=== PATIENT | female | born 1935 | race Caucasian/White ===

== ENCOUNTER → 2018-01-21 11:09 | Outpatient (CLI) | payer MEDICARE, OTHER, SELFPAY ==
[2018-01-21 12:28] LABS: Absolute Lymphocyte Count 1.39 X10^3/ul (0.83-4.51); Absolute Neutrophil Count 4.1 X10^3/uL (2.0-7.7); Basophil# 0.04 X10^3/uL; Basophil% 0.6 % (0-1); Eosinophil# 0.08 X10^3/uL; Eosinophils% 1.3 % (0-5); Hematocrit 37.8 % (37-47); Hemoglobin 12.2 g/dl (12.0-15.0); Lymphocyte # 1.39 X10^3/ul (4.0); Lymphocyte % 22.5 % (19-41); Mean Corp Hgb Conc 32.3 g/gl (32-36); Mean Corpuscular Hgb 29.7 pg (27.0-32.0); Mean Platelet Vol. 10.3 fl (6.2-12.0); Monocyte# 0.57 X10^3/uL; Monocyte% 9.2 % (0-10); Neutrophil # 4.08 X10^3/uL (2.7-7.7); Neutrophil % 66.1 % (47-70); Platelet Count 292 K/mm3 (150-450); RBC Distribution Width CV 13.6 % (11.6-14.6); RBC Distribution Width SD 45.1 fl (35.1-43.9); Red Blood Count 4.11 M/mm3 (4.2-5.4); White Blood Count 6.2 K/mm3 (4.4-11.0)
[2018-01-21 12:31] LABS: POSITIVE COUNT NO; POSITIVE DIFFERENTIAL NO; POSITIVE MORPHOLOGY NO
[2018-01-21 12:55] LABS: ALB/GLOB Ratio 1.2 RATIO (0.9-2.4); AST(SGOT) 24 U/L (15-37); Alanine Aminotransfer ALT/SGPT 23 U/L (13-56); Alkaline Phosphatase 68 U/L (45-117); Anion Gap 6 (5-15); BUN 16 mg/dL (7-18); BUN/Creat Ratio 17.3 RATIO (10-20); Calcium,Total 9.2 mg/dL (8.5-10.1); Chloride 105 mmol/L (98-107); Creatinine, Serum 0.92 mg/dL (0.55-1.02); EST Glomerular Filtration Rate 62 mL/min (>60); Est Glom Filt Rate - Afr Amer 75 mL/min (>60); Globulin 3.2 g/dL (2.2-4.2); Glucose 78 mg/dL (74-106); Potassium 3.9 mmol/L (3.5-5.1); Protein, Total 7.2 g/dL (6.4-8.2); Sodium Level 139 mmol/L (136-145); Thyroid Stim Hormone (TSH) 1.31 uIU/mL (0.358-3.74)
[2018-01-21 12:59] LABS: Vitamin D,25 Hydroxy 25.5 ng/mL (29.95-100.01)
== END ==
PROVIDERS: Family Provider Family Medicine Geriatric Medicine; PCP Family Medicine Geriatric Medicine; Visit Provider Family Medicine Geriatric Medicine
DX: E55.9 Vitamin D deficiency, unspecified (principal); R53.83 Other fatigue
CPT/HCPCS: 36415; 80053; 82306; 84443; 85025

== ENCOUNTER → 2019-02-17 | Outpatient (CLI) | payer MEDICARE, OTHER, SELFPAY ==
[2019-02-17 11:55] LABS: Absolute Lymphocyte Count 1.68 X10^3/ul (0.83-4.51); Absolute Neutrophil Count 4.4 X10^3/uL (2.0-7.7); Basophil# 0.04 X10^3/uL; Basophil% 0.6 % (0-1); Eosinophil# 0.07 X10^3/uL; Hematocrit 39.5 % (37-47); Hemoglobin 12.7 g/dl (12.0-15.0); Lymphocyte # 1.68 X10^3/ul (4.0); Lymphocyte % 24.7 % (19-41); Mean Corp Hgb Conc 32.2 g/gl (32-36); Mean Corpuscular Hgb 29.5 pg (27.0-32.0); Mean Corpuscular Volume 91.6 fL (81-99); Mean Platelet Vol. 10.2 fl (6.2-12.0); Monocyte% 8.8 % (0-10); Neutrophil # 4.38 X10^3/uL (2.7-7.7); Neutrophil % 64.6 % (47-70); Platelet Count 311 K/mm3 (150-450); RBC Distribution Width SD 46.1 fl (35.1-43.9); Red Blood Count 4.31 M/mm3 (4.2-5.4); White Blood Count 6.8 K/mm3 (4.4-11.0)
[2019-02-17 12:04] LABS: POSITIVE COUNT NO; POSITIVE DIFFERENTIAL NO; POSITIVE MORPHOLOGY NO
[2019-02-17 12:16] LABS: ALB/GLOB Ratio 1.2 RATIO (0.9-2.4); AST(SGOT) 24 U/L (15-37); Alanine Aminotransfer ALT/SGPT 26 U/L (13-56); Albumin, Serum 3.8 g/dL (3.2-5.0); Alkaline Phosphatase 58 U/L (45-117); Anion Gap 7 (5-15); BUN 16 mg/dL (7-18); BUN/Creat Ratio 17.3 RATIO (10-20); Chloride 103 mmol/L (98-107); Creatinine, Serum 0.93 mg/dL (0.55-1.02); EST Glomerular Filtration Rate 61 mL/min (>60); Est Glom Filt Rate - Afr Amer 74 mL/min (>60); Globulin 3.3 g/dL (2.2-4.2); Glucose 84 mg/dL (74-106); Potassium 3.9 mmol/L (3.5-5.1); Protein, Total 7.1 g/dL (6.4-8.2); Sodium Level 140 mmol/L (136-145); Thyroid Stim Hormone (TSH) 1.47 uIU/mL (0.358-3.74)
== END | disposition home or self-care (01) ==
LOC: POLAB3 08:40
PROVIDERS: Family Provider Family Medicine Geriatric Medicine; PCP Family Medicine Geriatric Medicine; Visit Provider Family Medicine Geriatric Medicine
DX: R53.83 Other fatigue (principal)
CPT/HCPCS: 36415; 80053; 84443; 85025

== ENCOUNTER → 2019-02-23 | Outpatient (CLI) | payer MEDICARE, OTHER, SELFPAY ==
--- NOTE | 2019-02-23 08:37 | RAD_ITS ---
STUDY: X-RAY - ESOPHAGUS (BARIUM SWALLOW) WITH FLUOROSCOPY REASON FOR EXAM: Female, 84 years old. Dysphagia for solids and liquids. TECHNIQUE: 17 view(s) of the esophagus were obtained following swallowing of barium. FLUOROSCOPY TIME (if supplied): (0:53) minutes/seconds COMPARISON: None. FINDINGS: There is no demonstrated esophageal foreign body. There is no demonstrated stricture or mucosal abnormality. Normal gastroesophageal junction, without a demonstrated hiatal hernia. The patient ingested a 12 mm tablet of barium without any difficulty. There is atherosclerotic calcification of the aortic arch with tortuosity of the descending aorta. Normal visualized pulmonary parenchyma. There are diffuse degenerative changes of the visualized thoracic spine. RAD/Esophagus Only IMPRESSION: Normal plain film x-ray examination (barium swallow) of the esophagus. Electronically Signed: Mario Rabago, at 15:10 EDT , Service support ,
== END | disposition home or self-care (01) ==
LOC: RAD 08:27
PROVIDERS: Family Provider Family Medicine Geriatric Medicine; PCP Family Medicine Geriatric Medicine; Referring Provider Family Medicine Geriatric Medicine; Visit Provider Family Medicine Geriatric Medicine
DX: R13.10 Dysphagia, unspecified (principal)
CPT/HCPCS: 74220

== ENCOUNTER → 2020-02-21 | Outpatient (CLI) | payer MEDICARE, OTHER, SELFPAY ==
[2020-02-21 12:08] LABS: Absolute Lymphocyte Count 1.55 X10^3/uL (0.83-4.51); Absolute Neutrophil Count 4.3 X10^3/uL (2.0-7.7); Basophil# 0.06 X10^3/uL; Basophil% 0.9 % (0-1); Eosinophil# 0.07 X10^3/uL; Eosinophils% 1.1 % (0-5); Hematocrit 40.6 % (37-47); Hemoglobin 13.1 g/dL (12.0-15.0); Lymphocyte # 1.55 X10^3/ul (4.0); Lymphocyte % 23.6 % (19-41); Mean Corp Hgb Conc 32.3 g/dL (32-36); Mean Corpuscular Hgb 30.1 pg (27.0-32.0); Mean Corpuscular Volume 93.3 fL (81-99); Monocyte# 0.58 X10^3/uL; Monocyte% 8.8 % (0-10); NRBC Flagged by Analyzer 0 % (0-5); Neutrophil # 4.28 X10^3/uL (2.7-7.7); Neutrophil % 65.1 % (47-70); Platelet Count 327 K/mm3 (150-450); RBC Distribution Width CV 12.7 % (11.6-14.6); RBC Distribution Width SD 43.4 fl (35.1-43.9); Red Blood Count 4.35 M/mm3 (4.2-5.4); White Blood Count 6.6 K/mm3 (4.4-11.0)
[2020-02-21 12:13] LABS: Vitamin D,25 Hydroxy 22.2 ng/mL
[2020-02-21 12:28] LABS: ALB/GLOB Ratio 1.2 RATIO (0.9-2.4); AST(SGOT) 25 U/L (15-37); Alanine Aminotransfer ALT/SGPT 27 U/L (13-56); Alkaline Phosphatase 76 U/L (45-117); Anion Gap 8 (5-15); BUN 22 mg/dL (7-18); BUN/Creat Ratio 22.4 RATIO (10-20); Chloride 101 mmol/L (98-107); Creatinine, Serum 0.98 mg/dL (0.55-1.02); EST Glomerular Filtration Rate 57 mL/min (>60); Est Glom Filt Rate - Afr Amer 69 mL/min (>60); Globulin 3.4 g/dL (2.2-4.2); Glucose 94 mg/dL (74-106); Potassium 4.1 mmol/L (3.5-5.1); Protein, Total 7.4 g/dL (6.4-8.2); Sodium Level 136 mmol/L (136-145); Thyroid Stim Hormone (TSH) 1.11 uIU/mL (0.358-3.74)
== END | disposition home or self-care (01) ==
PROVIDERS: PCP Family Medicine Geriatric Medicine; Visit Provider Family Medicine Geriatric Medicine
DX: E55.9 Vitamin D deficiency, unspecified (principal); R53.83 Other fatigue
CPT/HCPCS: 36415; 80053; 82306; 84443; 85025

== ENCOUNTER 2020-10-13 08:14 | Outpatient (RCR) | payer MEDICARE, OTHER, SELFPAY | END 2020-10-13 23:59 | LOC: IMMUN 08:14 | PROVIDERS: PCP Family Medicine Geriatric Medicine; Visit Provider Family Medicine | DX: Z23 Encounter for immunization (principal) | CPT/HCPCS: 0011A; 0012A; 91301 ==

== ENCOUNTER → 2021-02-22 08:59 | Outpatient (CLI) | payer MEDICARE, OTHER, SELFPAY ==
[2021-02-22 10:51] LABS: Basophil# 0.07 X10^3/uL; Eosinophil# 0.12 X10^3/uL; Eosinophils% 1.7 % (0-5); Hemoglobin 12.2 g/dL (12.0-15.0); Lymphocyte % 18.6 % (19-41); Mean Corp Hgb Conc 31.3 g/dL (32-36); Mean Corpuscular Hgb 29.5 pg (27.0-32.0); Mean Corpuscular Volume 94.4 fL (81-99); Mean Platelet Vol. 9.9 fl (6.2-12.0); Monocyte# 0.52 X10^3/uL; Monocyte% 7.4 % (0-10); NRBC Flagged by Analyzer 0 % (0-5); Neutrophil # 4.96 X10^3/uL (2.7-7.7); Neutrophil % 70.9 % (47-70); Platelet Count 297 K/mm3 (150-450); RBC Distribution Width CV 13.2 % (11.6-14.6); RBC Distribution Width SD 46.2 fl (35.1-43.9); Red Blood Count 4.13 M/mm3 (4.2-5.4)
[2021-02-22 11:07] LABS: Vitamin D,25 Hydroxy 31.3 ng/mL
[2021-02-22 11:16] LABS: ALB/GLOB Ratio 1.2 RATIO (0.9-2.4); AST(SGOT) 19 U/L (15-37); Alanine Aminotransfer ALT/SGPT 23 U/L (13-56); Albumin, Serum 3.7 g/dL (3.2-5.0); Alkaline Phosphatase 94 U/L (45-117); Anion Gap 5 (5-15); BUN 13 mg/dL (7-18); BUN/Creat Ratio 14.4 RATIO (10-20); Calcium,Total 9.3 mg/dL (8.5-10.1); Chloride 103 mmol/L (98-107); EST Glomerular Filtration Rate 63 mL/min (>60); Est Glom Filt Rate - Afr Amer 76 mL/min (>60); Globulin 3.2 g/dL (2.2-4.2); Glucose 87 mg/dL (74-106); Potassium 4.2 mmol/L (3.5-5.1); Protein, Total 6.9 g/dL (6.4-8.2); Sodium Level 136 mmol/L (136-145); Thyroid Stim Hormone (TSH) 1.07 uIU/mL (0.358-3.74)
== END ==
PROVIDERS: PCP Family Medicine Geriatric Medicine; Visit Provider Family Medicine Geriatric Medicine
DX: E55.9 Vitamin D deficiency, unspecified (principal); R53.83 Other fatigue
CPT/HCPCS: 36415; 80053; 82306; 84443; 85025

== ENCOUNTER → 2021-02-27 | Outpatient (CLI) | payer MEDICARE, OTHER, SELFPAY ==
--- NOTE | 2021-02-27 09:40 | LES_PTH ---
PATIENT: TOI HESS LOC: [facility] U#:[id number] AGE/SX: 86/F ROOM: RE02/27/[address]: Dr. Landon Garcia MD : 1935 BED: DIS: 02/27/2021 SPEC #: [id number] RECD: 02/27/21 12:11 STATUS: CHARISSA RELucien #: [id number] SARITHA: 02/27/21 09:[address]: Landon Garcia Chi DEPT: SURGICAL PATHOLOGY RECD BY: Joahnna Ahuja Tissues: A - Skin of leg, NOS B - Skin of leg, NOS Procedures: Surgery Specimen Level IV HEADER OPERATION: Left leg PRE-OP DIAGNOSIS: Left leg TISSUE SUBMITTED: A - Left leg, B - Left leg MICROSCOPIC DIAGNOSIS A. Skin lesion of left leg, smaller shave biopsy: Invasive squamous cell carcinoma, keratoacanthomatous type. See comment. B. Skin lesion of left leg, larger shave biopsy: Invasive well differentiated squamous cell carcinoma, keratoacanthomatous type. See comment. AM:ryan 02/28/2021 COMMENT A. The lesion extends to the deep margin of excision. Clinical correlation is necessary. B. The lesion extends to the deep margin of excision. Clinical correlation is necessary. Case has been reviewed in consultation with Dr. Dietz who concurs with the above diagnosis. IDC:ASYA MICROSCOPIC DESCRIPTION Slides are reviewed. GROSS DESCRIPTION A - Received in fixative is one container labeled with the patient's name and designated left leg. The specimen consists of a discoid fragment of light brenner skin measuring 1.5 cm in diameter and 0.6 cm in thickness. The specimen is inked, serially sectioned and totally submitted in one cassette. B - Received in fixative is one container labeled with the patient's name and designated left leg. The specimen consists of a discoid fragment of light brenner skin measuring 9 cm in diameter and 0.2 cm in thickness. The specimen is inked, serially sectioned and totally submitted in one cassette. / AM:ryan 02/27/21 TC:0 CPT: 87740 x2
== END | disposition home or self-care (01) ==
LOC: LABSPEC 12:00
PROVIDERS: PCP Family Medicine Geriatric Medicine; Visit Provider Family Medicine Geriatric Medicine
DX: C44.729 Squamous cell carcinoma of skin of left lower limb, including hip (principal)
CPT/HCPCS: 88305

== ENCOUNTER 2021-04-16 06:48 | Day surgery (SDC) | payer MEDICARE, OTHER, SELFPAY ==
[2021-03-15 14:02] VITALS: BMI 21.9
--- NOTE | 2021-04-15 21:41 | PCM.HP.BLA ---
History and Physical Date of Admission: 04/16/21 HISTORY OF PRESENT ILLNESS 86 year old female presents with two lesions on her left anterolateral leg that have increased in size over the last several months with some crusting and some itching. Shave biopsy was done on 02/27/21. The most anterior lesion was an invasive squamous cell carcinoma, keratoacanthomatous type. The lateral lesion was an invasive, well-differentiated squamous cell carcinoma, keratoacanthomatous type. She presents today for further evaluation and treatment. PAST MEDICAL HISTORY Squamous cell carcinoma of left lower leg PAST SURGICAL HISTORY None ALLERGIES denosumab [From Prolia] MEDICATIONS aspirin FAMILY HISTORY Daughter - Breast cancer Father - Cancer Mother - Cancer Brother - Cancer SOCIAL HISTORY Smoking Status: Never smoker REVIEW OF SYSTEMS General - Denies fever, fatigue, and weight loss. Eyes - Has cataracts. Denies glaucoma. ENT - Denies nasal congestion and sore throat. Endocrine - Denies excessive thirst and urination. Skin - Two lesions on left anterolateral leg were shave biopsied on 02/27/21 and pathology showed squamous cell carcinoma. No family history of skin cancer. Musculoskeletal - Denies joint pain, joint stiffness, weakness of muscles and joints, back pain, and arthritis. History of osteoporosis. Neuro - Denies headaches. Cardiovascular - Denies chest pain, fatigue, and shortness of breath with exertion. History of hypercholesterolemia, does not take medications for it. Psych - Denies anxiety and depression. Respiratory - Denies chronic cough and shortness of breath. Gastrointestinal - Denies nausea, vomiting, diarrhea. Has constipation. Hematologic - Denies abnormal bruising and bleeding. Genitourinary - Denies hematuria. Has urinary frequency. PHYSICAL EXAMINATION General - Alert and oriented. HEENT - PERRL. EOMI. Throat is clear. Neck - Supple and non-tender. No cervical adenopathy. Lungs- Clear to auscultation. Heart - Regular rate and rhythm. Abdomen - Soft and non distended. Extremities - FROM. No axillary adenopathy. Radial pulses are palpable. No inguinal adenopathy. Dorsalis pedis pulses are palpable. On the left anterolateral leg are two lesions with overlying scabs after recent shave biopsy on 02/27/21. The lateral lesion measures 8 mm. The anterior lesion measures 4 mm. Have irregular borders. The distance between the lesions is 1.5 cm. Scabs are nontender. Neuro - CN II-XII grossly intact. Psych - Normal mood and affect. ASSESSMENT 1. 8 mm invasive, well-differentiated squamous cell carcinoma, keratoacanthomatous type, left anterolateral leg, lateral. 2. 4 mm invasive squamous cell carcinoma, keratoacanthomatous type, left anterolateral leg, anterior. PLAN Patient had two shave biopsies on left anterolateral leg on 02/27/21. The anterior lesion was an invasive squamous cell carcinoma, keratoacanthomatous type. The lateral lesion was an invasive, well-differentiated squamous cell carcinoma, keratoacanthomatous type. Recommend further full thickness excision of these squamous cell carcinomas with a margin. Will send the tissue to Pathology for analysis to rule out carcinoma at the margins. Reconstruction will be with skin grafting. Surgery will be done on an outpatient basis under local anesthesia and IV sedation. Patient was informed of the risks and complications of the procedure including alternatives to surgery. These were discussed with the patient personally. Patient voices understanding and wishes to proceed. Some of the risks and complications were included in a form from the [employer]. We discussed the current risks associated with COVID-19. While it is understood that there is a community spread of COVID-19, the risk of ajay COVID-19 while at [facility] ([facility]) is very low; however, the risk cannot be completely mitigated because of the community spread of the disease. We discussed in detail the risk of exposure to and/or potential harm posed by the COVID-19 virus with having a surgery/procedure at this time versus the risk of delaying the surgery/procedure. It is not possible to know either the risk of delaying the surgery or procedure or chance of getting an infection with perfect accuracy, but a joint decision was made to proceed at this time with the scheduled surgery/procedure as indicated on the consent form. Patient was notified that we will need to comply with any screening or testing [facility] wishes to perform or that surgery may be delayed for any positive results. Procedure Criteria Procedure Type: Elective COVID Risk Discussion: The surgeon/proceduralist and patient have discussed in detail the risk of exposure to and/or potential harm posed by the COVID-19 virus with having a surgery/procedure at this time versus the risk of delaying the surgery/procedure. It is not possible to know either the risk of delaying the surgery or procedure or chance of getting an infection with perfect accuracy, but a joint decision was made between the patient and the surgeon/proceduralist to proceed at this time with the scheduled surgery/procedure as indicated on the consent form.
[2021-04-16 07:10] VITALS: BP 159/60; PULSE 54; RESP 18; TEMP 37.1; O2SAT 100; BMI 21.9
[2021-04-16] MEDS: Lactated Ringers 1,000 ML 100 ML IV ×2 (07:54→11:04)
--- NOTE | 2021-04-16 08:30 | TISS_PTH ---
PATIENT: TOI HESS LOC: [facility] [place] U#:[id number] AGE/SX: 86/F ROOM: RE04/16/[address]: Dr. Leo Lee MD : 1935 BED: DIS: 04/16/2021 SPEC #: [id number] RECD: 04/16/21 11:29 STATUS: CHARISSA DONITA #: [id number] SARITHA: 04/16/21 08:[address]: Leo Lee DEPT: SURGICAL PATHOLOGY RECD BY: Thony Hinton ENTERED: 04/16/21 13:03 SP TYPE: Tissue Bx OT DR: Dr. Landon Garcia MD Tissues: Skin of leg, NOS Procedures: Surgery Specimen Level IV HEADER OPERATION: Excision squamous cell CA x2 lateral leg with skin grafting PRE-OP DIAGNOSIS: 8 mm invasive well-differentiated squamous cell carcinoma, keratoacanthomatous type, left anterolateral leg, lateral; 4 mm invasive squamous cell carcinoma, keratoacanthomatous type, left anterolateral leg, anterior TISSUE SUBMITTED: Squamous cell carcinoma left lateral leg, suture at 12 o?clock MICROSCOPIC DIAGNOSIS Skin lesion of left lateral leg, excision: Cicatrix and fat necrosis. Solar elastosis and actinic change. Hyperkeratosis. Mild chronic inflammation. No evidence of malignancy. AM:ryan 04/17/2021 COMMENT Reference is made to the patient's left leg skin biopsy ([id number]) in which invasive squamous cell carcinoma was identified. MICROSCOPIC DESCRIPTION Slides are reviewed. GROSS DESCRIPTION Received in fixative is one container labeled with the patient's name and designated squamous cell carcinoma left lateral leg, suture at 12 o'clock. The specimen consists of an ovoid to slightly rubber piece of brenner-light brown skin measuring 4.5 x 3.3 x 0.2 cm. Two areas of lesions, one towards the 3 o?clock margin measuring 1.5 x 1.5 cm and the second towards the 9 o?clock margin, is circular and measures 1.7 and 1.5 cm. The specimen is inked as follows: 12 to 3 o?clock ? black, 3 o 6 o?clock ? blue, 6 to 9 o?clock ? green, 9 to 12 ? yellow, deep margin ? red. The specimen is serially sectioned and submitted entirely in six cassettes from 3 to 9 o?clock margin. The lesion present close to 3 o?clock margin is present in 2 & 3 and the lesion present close to 9 o?clock margin is present in block 4 & 5. / SJ:ryan 04/16/21 TC:3 CPT: 66891
[2021-04-16] MEDS: Cefazolin 2 GM in 0.9% Normal Saline 100 ML IV (09:38)
[2021-04-16] MEDS: Mupirocin Ointment 22gm Tube 1 APPLIC (10:15)
[2021-04-16] MEDS: Lidocaine 1% /Epi 1:100 (20ml) 20 ML Vial (10:43)
--- NOTE | 2021-04-16 10:49 | OP.PCM_ITS ---
Problems Associated Problem List Diagnoses (1) Squamous cell carcinoma of left lower leg: (2) Open wound of left lower leg with complication: Report of Operation Date of Procedure: 04/16/21 Pre-Operative Diagnosis: 1. 8 mm invasive, well-differentiated squamous cell carcinoma, keratoacanthomatous type, left anterolateral leg, lateral. 2. 4 mm invasive squamous cell carcinoma, keratoacanthomatous type, left anterolateral leg, anterior. Post-Operative Diagnosis: 1. 8 mm invasive, well-differentiated squamous cell carcinoma, keratoacanthomatous type, left anterolateral leg, lateral. 2. 4 mm invasive squamous cell carcinoma, keratoacanthomatous type, left anterolateral leg, anterior. 3. Open surgical squamous cell carcinoma x2 wound left anterolateral leg. Surgery/Procedure Performed:: Excision 8 mm invasive, well-differentiated squamous cell carcinoma, keratoacanthomatous type, left anterolateral leg, lateral, and excision 4 mm invasive squamous cell carcinoma, keratoacanthomatous type, left anterolateral leg, anterior, with STSG reconstruction from left flank (20 cm2) and placement TYLER NPWT device. Description of Surgical Findings:: 86 year old female presents with two lesions on her left anterolateral leg that have increased in size over the last several months with some crusting and some itching. Shave biopsy was done on 02/27/21. The most anterior lesion was an invasive squamous cell carcinoma, keratoacanthomatous type. The lateral lesion was an invasive, well- differentiated squamous cell carcinoma, keratoacanthomatous type. Patient was informed of the risks and complications of the procedure including alternatives to surgery. These were discussed with the patient personally. Patient voices understanding and wishes to proceed. Some of the risks and complications were included in a form from the [employer]. Size of skin graft left anterolateral leg - 5 x 4 cm. Surgeon: Leo Lee exhaust emissions inspector: Josh Donohue Type of Anesthesia: General Specimen's removed: Invasive, well-differentiated squamous cell carcinoma, keratoacanthomatous type, left anterolateral leg, lateral, and invasive squamous cell carcinoma, keratoacanthomatous type, left anterolateral leg, anterior, to Pathology. Drains: None. Estimated Blood Loss (mL): 5. Description of Procedure: Patient was taken to OR in supine position and was placed under general anesthesia. The left leg and left flank area were prepped and draped in the usual fashion. SCD's were placed for DVT prophylaxis. Perioperative antibiotics were given intravenously. Using xylocaine with epinephrine, the lesions left leg and the left flank area were infiltrated. After waiting 5 minutes for the anesthetic to take effect, I made an oblique elliptical incision in the left flank down into the subcutaneous tissue. I removed the subcutaneous tissue from the undersurface of the graft along with some deeper dermis, thus fashioning a thick split thickness skin graft. The graft was placed on stretch and meshed with a 15 scalpel. The graft was placed in saline. Some of the subcutaneous tissue was removed to help with wound closure. Hemostasis was obtained with electrocautery. The donor incision left flank was then closed in a layered fashion with 3-0 Monocryl figure of eight interrupted sutures for the Mustapha's layer. The deep dermis and subcutaneous tissue was approximated with 3-0 Monocryl interrupted sutures. The skin was approximated with 3-0 V lock unidirectional barbed running subcuticular suture. Antibiotic ointment was applied to the incision followed by gauze dressing. I then excised the squamous cell carcinomas x2 anterolateral leg, one lateral and one anterior, down into the subcutaneous tissue. I used a 6 mm margin in all directions. A suture was marked at 12 oclock position for pathology orientation. The lesions were then sent to Pathology for analysis to rule out carcinoma at the margins. The size of the excisions are 1.6 cm for the lesion anterolateral leg, anterior, and 2.0 cm for the lesion anterolateral leg, lateral. The size of the defect to be skin grafted was 5 x 4 cm or 20 cm2. Hemostasis obtained with electrocautery. I placed the thick split thickness skin graft, meshed, onto the left anterolateral leg wound and secured the graft to the skin edges with 4-0 Chromic interrupted sutures. I also used 4-0 Chromic simple interrupted sutures for central quilting stabilization. Antibiotic ointment was applied to the skin graft. I then placed a TYLER NPWT device onto the skin graft to provide immobilization so the new blood vessels can grow into the skin graft. After TYLER NPWT device was attached, I turned it on and good suction was noted on the graft as the motor was beeping green in the OK button. I then applied a compression giancarlo wrap to minimize swelling postoperatively. Patient tolerated the procedure well and was sent to PACU in satisfactory condition. Patient will be sent home on antibiotics and pain medication. She will keep her left leg elevated when sitting. Try and minimize standing in one place. Patient will followup later in the week on Friday for a skin graft wound check with takedown of the TYLER NPWT device and for discussion of the pathology report. Grafts/Implants Used: None. Complications None. Admit VTE Documentation VTE Present on Admission: No VTE Mechan Device Prophylaxis: SCD's VTE Pharm Prophylaxis ordered?: No Addendum Addendum: Surgery Charges CPT - 52919 ICD-10 - S81.802A, C44.729 54578 C44.729, S81.802A
[2021-04-16 10:52] VITALS: BP 137/64; BP 159/60; PULSE 74; RESP 16; TEMP 36.8; O2SAT 94
[2021-04-16 11:00] VITALS: BP 122/45; BP 159/60; PULSE 74; RESP 16; O2SAT 93
[2021-04-16 11:15] VITALS: BP 137/55; BP 159/60; PULSE 78; RESP 16; O2SAT 94
--- NOTE | 2021-04-16 11:15 | PCM.DC ---
Discharge Instructions Diet Discharge Diet: No restrictions and - (encourage nutritional supplementation with protein to help the healing process.) Activity Discharge Activity: May Not Drive, May Shower (in two days. wear plastic bag over left leg when showering.) and - (patient may ambulate. No standing. Elevate left leg when sitting.) May shower in (days): 2 (wear plastic bag over left leg when showering.) May resume sexual activity in: No Restrictions Weight Bearing Status: Weight bearing as tolerated Keep extremity elevated above heart level: Left Leg (when sitting.) Dressing / Incision Call your doctor if your incision/area has: Continuous Slow Oozing, Sudden Increased Bleeding, Increased Pain/ Swelling, Increased Redness, Foul Smelling Discharge and Swelling at the incision site Call your doctor if you observe: Fever of 101 or Higher, Coldness, Increased Pain, Shortness of breath, Chest pain, Calf discomfort, Uncontrolled pain and - ( if the TYLER device starts beeping red and stops blinking green,) Remove Dressing in: 2 days (left flank dressing only. will remove the left leg skin graft dressing and TYLER device on friday04/20/21.) Cleanse incision/area with: - (wear plastic bag over left leg when showering.) Follow Up Care Please Follow Up With: Leo Lee MD When: friday04/20/21. call [phone] for appt. time. Test Results: Test results from this visit will be discussed in further detail at your follow-up appointment, if applicable. Discharge Plan Admission Primary Reason for Your Visit: squamous cell carcinoma left leg Attending Provider: Leo Lee Primary Care Provider: Landon Garcia Chi Discharge Orders/Prescriptions Prescriptions: New doxycycline hyclate 100 mg capsule 100 mg PO BID Qty: 14 RF: 0 oxycodone-acetaminophen [Percocet] 5-325 mg tablet 1 tab PO Q6H PRN (Reason: pain (scale score 7-10)) 5 Days Qty: 20 RF: 0 Continued polyethylene glycol 3350 [Miralax] 17 gram/dose Powder 17 g PO DAILY RF: 0 Held aspirin 81 mg tablet,delayed release (DR/EC) 81 mg PO DAILY RF: 0 Hold Instructions: Resume on 04/20/21. Referrals / Follow Up: Landon Garcia Chi, MD [Primary Care Provider] - Disposition Disposition (needs filled in before D/C Order can be placed): Home, Self Care
[2021-04-16 11:30] VITALS: BP 138/67; BP 159/60; PULSE 70; RESP 16; TEMP 36.2; O2SAT 95
[2021-04-16 12:20] VITALS: BP 150/61; BP 159/60; PULSE 70; RESP 16; TEMP 36.3; O2SAT 97
== END 2021-04-16 12:29 | disposition home or self-care (01) ==
LOC: SDC 06:52 → AC 06:52
PROVIDERS: PCP Family Medicine Geriatric Medicine; Referring Provider Surgery; Visit Provider Surgery
PROC: (CPT 11604; principal; 2021-04-16 08:15)
DX: C44.729 Squamous cell carcinoma of skin of left lower limb, including hip (principal); S81.802A Unspecified open wound, left lower leg, initial encounter; X58.XXXA Exposure to other specified factors, initial encounter; M81.0 Age-related osteoporosis without current pathological fracture
CPT/HCPCS: 00400; 11604; 15100; 88305; J7120; J2405

== ENCOUNTER → 2022-02-27 | Outpatient (CLI) | payer MEDICARE, OTHER, SELFPAY ==
[2022-02-27 11:47] LABS: Absolute Lymphocyte Count 1.35 X10^3/uL (0.83-4.51); Absolute Neutrophil Count 3.5 X10^3/uL (2.0-7.7); Basophil# 0.07 X10^3/uL; Basophil% 1.3 % (0-1); Eosinophil# 0.07 X10^3/uL; Eosinophils% 1.3 % (0-5); Hematocrit 38.2 % (37-47); Hemoglobin 12.2 g/dL (12.0-15.0); Lymphocyte # 1.35 X10^3/ul (0.83-4.51); Lymphocyte % 24.2 % (19-41); Mean Corp Hgb Conc 31.9 g/dL (32-36); Mean Corpuscular Hgb 29.8 pg (27.0-32.0); Mean Corpuscular Volume 93.2 fL (81-99); Mean Platelet Vol. 10.2 fl (6.2-12.0); Monocyte# 0.53 X10^3/uL; Monocyte% 9.5 % (0-10); NRBC Flagged by Analyzer 0 % (0-5); Neutrophil # 3.52 X10^3/uL (2.7-7.7); Neutrophil % 63.2 % (47-70); Platelet Count 280 K/mm3 (150-450); RBC Distribution Width CV 13.2 % (11.6-14.6); RBC Distribution Width SD 45.1 fl (35.1-43.9); White Blood Count 5.6 K/mm3 (4.4-11.0)
[2022-02-27 12:04] LABS: Vitamin D,25 Hydroxy 23.7 ng/mL
[2022-02-27 12:15] LABS: ALB/GLOB Ratio 1.2 RATIO (0.9-2.4); AST(SGOT) 26 U/L (15-37); Alanine Aminotransfer ALT/SGPT 31 U/L (13-56); Albumin, Serum 3.9 g/dL (3.2-5.0); Alkaline Phosphatase 68 U/L (45-117); Anion Gap 6 (5-15); BUN 17 mg/dL (7-18); BUN/Creat Ratio 16.7 RATIO (10-20); Calcium,Total 9.2 mg/dL (8.5-10.1); Chloride 102 mmol/L (98-107); Creatinine, Serum 1.02 mg/dL (0.55-1.02); EST Glomerular Filtration Rate 55 mL/min (>60); Est Glom Filt Rate - Afr Amer 66 mL/min (>60); Globulin 3.2 g/dL (2.2-4.2); Glucose 82 mg/dL (74-106); Potassium 3.9 mmol/L (3.5-5.1); Protein, Total 7.1 g/dL (6.4-8.2); Sodium Level 137 mmol/L (136-145)
== END | disposition home or self-care (01) ==
LOC: POLAB3 08:57
PROVIDERS: PCP Family Medicine Geriatric Medicine; Visit Provider Family Medicine Geriatric Medicine
DX: R53.83 Other fatigue (principal); E55.9 Vitamin D deficiency, unspecified
CPT/HCPCS: 36415; 80053; 82306; 84443; 85025

== ENCOUNTER → 2023-03-21 | Outpatient (CLI) | payer MEDICARE, OTHER, SELFPAY ==
[2023-03-21 10:06] LABS: Absolute Lymphocyte Count 1.38 X10^3/uL (0.83-4.51); Basophil# 0.05 X10^3/uL; Basophil% 0.8 % (0-1); Eosinophil# 0.09 X10^3/uL; Eosinophils% 1.5 % (0-5); Hematocrit 41.8 % (37-47); Hemoglobin 12.8 g/dL (12.0-15.0); Lymphocyte # 1.38 X10^3/ul (0.83-4.51); Lymphocyte % 22.7 % (19-41); Mean Corp Hgb Conc 30.6 g/dL (32-36); Mean Corpuscular Volume 94.6 fL (81-99); Mean Platelet Vol. 9.4 fl (6.2-12.0); Monocyte# 0.49 X10^3/uL; Monocyte% 8.1 % (0-10); NRBC Flagged by Analyzer 0 % (0-5); Neutrophil # 3.95 X10^3/uL (2.7-7.7); Neutrophil % 65.1 % (47-70); Platelet Count 292 K/mm3 (150-450); RBC Distribution Width CV 13.1 % (11.6-14.6); RBC Distribution Width SD 45.5 fl (35.1-43.9); Red Blood Count 4.42 M/mm3 (4.2-5.4); White Blood Count 6.1 K/mm3 (4.4-11.0)
[2023-03-21 10:36] LABS: Vitamin D,25 Hydroxy 33.8 ng/mL
[2023-03-21 10:58] LABS: ALB/GLOB Ratio 1.1 RATIO (0.9-2.4); AST(SGOT) 24 U/L (15-37); Alanine Aminotransfer ALT/SGPT 22 U/L (13-56); Alkaline Phosphatase 63 U/L (45-117); Anion Gap 4 (5-15); BUN 15 mg/dL (7-18); BUN/Creat Ratio 14.7 RATIO (10-20); Calcium,Total 9.3 mg/dL (8.5-10.1); Chloride 105 mmol/L (98-107); Creatinine, Serum 1.02 mg/dL (0.55-1.02); EST Glomerular Filtration Rate 54 mL/min (>60); Est Glom Filt Rate - Afr Amer 66 mL/min (>60); Globulin 3.5 g/dL (2.2-4.2); Glucose 94 mg/dL (74-106); Protein, Total 7.5 g/dL (6.4-8.2); Sodium Level 137 mmol/L (136-145); Thyroid Stim Hormone (TSH) 1.22 uIU/mL (0.358-3.74)
== END | disposition home or self-care (01) ==
LOC: LAB 09:23
PROVIDERS: PCP Family Medicine Geriatric Medicine; Referring Provider Family Medicine Geriatric Medicine; Visit Provider Family Medicine Geriatric Medicine
DX: R53.83 Other fatigue (principal); E55.9 Vitamin D deficiency, unspecified
CPT/HCPCS: 36415; 80053; 82306; 84443; 85025

== ENCOUNTER → 2023-06-27 | Outpatient (CLI) | payer MEDICARE, OTHER, SELFPAY ==
--- NOTE | 2023-06-27 11:20 | RAD_ITS ---
STUDY: X-RAY - LUMBAR SPINE REASON FOR EXAM: Female, 88 years old. LEFT KNEE PAIN TECHNIQUE: 4 view(s) of the lumbar spine were obtained. COMPARISON: None FINDINGS: There is an exaggerated lumbar lordosis. There is scoliosis of thoracolumbar spine with convexity to the right. There is a normal alignment of the vertebrae. There is diffuse demineralization with multi-level endplate spondylosis. There is multi-level degenerative disc disease with multi-level disc space narrowing. There is no demonstrated fracture. There is no demonstrated spondylolysis of the pars interarticulares. There is atherosclerotic calcification of the abdominal aorta without a demonstrated aneurysm. Increased fecal debris within the colon, cannot exclude constipation. RAD/L/S Spine Min 4 Views IMPRESSION: Diffuse osteopenia along with multilevel degenerative disease. Scoliosis with convexity to the right. No acute fracture or spondylolisthesis. Electronically Signed: Suzie Moreno MD at 17:10 EDT ,
--- NOTE | 2023-06-27 11:20 | RAD_ITS ---
STUDY: X-RAY - LEFT KNEE REASON FOR EXAM: Female, 88 years old. Left knee pain. TECHNIQUE: 3 views of the left knee. COMPARISON: None. FINDINGS: Normal visualized distal femur. Normal visualized proximal tibia and fibula. Normal proximal tibiofibular articulation. There is no demonstrated fracture. Normal medial femorotibial compartment. Normal lateral femorotibial compartment. Normal patellofemoral articulation. There is a small knee joint effusion. The soft tissue structures are unremarkable. RAD/Knee 3 Views IMPRESSION: Small knee joint effusion. No demonstrated fracture. Electronically Signed: Jose Schneider MD at 15:43 EDT ,
== END | disposition home or self-care (01) ==
LOC: RAD 11:04
PROVIDERS: PCP Family Medicine Geriatric Medicine; Referring Provider Family Medicine Geriatric Medicine; Visit Provider Family Medicine Geriatric Medicine
DX: M54.32 Sciatica, left side (principal); M25.562 Pain in left knee
CPT/HCPCS: 72110; 73562

== ENCOUNTER → 2023-09-03 | Outpatient (CLI) | payer MEDICARE, OTHER, SELFPAY ==
[2023-09-03 11:01] LABS: Absolute Lymphocyte Count 1.17 X10^3/uL (0.83-4.51); Absolute Neutrophil Count 4.3 X10^3/uL (2.0-7.7); Basophil# 0.06 X10^3/uL; Eosinophil# 0.11 X10^3/uL; Eosinophils% 1.8 % (0-5); Hematocrit 38.4 % (37-47); Lymphocyte # 1.17 X10^3/ul (0.83-4.51); Mean Corp Hgb Conc 31.3 g/dL (32-36); Mean Corpuscular Hgb 29.4 pg (27.0-32.0); Mean Corpuscular Volume 94.1 fL (81-99); Mean Platelet Vol. 9.8 fl (6.2-12.0); Monocyte# 0.52 X10^3/uL; Monocyte% 8.4 % (0-10); NRBC Flagged by Analyzer 0 % (0-5); Neutrophil # 4.26 X10^3/uL (2.7-7.7); Neutrophil % 69.2 % (47-70); Platelet Count 270 K/mm3 (150-450); RBC Distribution Width CV 13.6 % (11.6-14.6); RBC Distribution Width SD 46.8 fl (35.1-43.9); Red Blood Count 4.08 M/mm3 (4.2-5.4); White Blood Count 6.2 K/mm3 (4.4-11.0)
[2023-09-03 11:15] LABS: Vitamin D,25 Hydroxy 23.2 ng/mL
[2023-09-03 11:32] LABS: ALB/GLOB Ratio 1.1 RATIO (0.9-2.4); AST(SGOT) 26 U/L (15-37); Alanine Aminotransfer ALT/SGPT 23 U/L (13-56); Albumin, Serum 3.7 g/dL (3.2-5.0); Alkaline Phosphatase 65 U/L (45-117); Anion Gap 7 (5-15); BUN 17 mg/dL (7-18); BUN/Creat Ratio 18.8 RATIO (10-20); Calcium,Total 8.6 mg/dL (8.5-10.1); Chloride 105 mmol/L (98-107); EST Glomerular Filtration Rate 62 mL/min (>60); Est Glom Filt Rate - Afr Amer 75 mL/min (>60); Globulin 3.4 g/dL (2.2-4.2); Glucose 87 mg/dL (74-106); Potassium 4.1 mmol/L (3.5-5.1); Protein, Total 7.1 g/dL (6.4-8.2); Sodium Level 138 mmol/L (136-145); Thyroid Stim Hormone (TSH) 1.29 uIU/mL (0.358-3.74)
== END | disposition home or self-care (01) ==
LOC: POLAB3 10:07
PROVIDERS: PCP Family Medicine Geriatric Medicine; Visit Provider Family Medicine Geriatric Medicine
DX: R53.83 Other fatigue (principal); E55.9 Vitamin D deficiency, unspecified
CPT/HCPCS: 36415; 80053; 82306; 84443; 85025

== ENCOUNTER → 2024-03-09 | Outpatient (CLI) | payer MEDICARE, OTHER, SELFPAY ==
--- NOTE | 2024-03-09 11:45 | RAD_ITS ---
STUDY: X-RAY - LUMBAR SPINE REASON FOR EXAM: Female, 89 years old. Left sciatica. TECHNIQUE: 5 view(s) of the lumbar spine were obtained. COMPARISON: June 27, 2023 FINDINGS: Osteopenia. Slightly accentuated lordosis. Marked thoracolumbar scoliosis, unchanged. Stable 11 mm of anterolisthesis of L2 on L1 and 9 mm of anterolisthesis of L4 on L5. Endplate concavities compatible with osteoporosis. Stable diffuse intervertebral disc space narrowing with osteophyte formation most marked at L1-2 and L5-S1. Marked vascular calcification. RAD/L/S Spine Min 4 Views IMPRESSION: Stable osteopenia, marked thoracolumbar scoliosis and diffuse moderate lower thoracic and lumbosacral spondylosis. Electronically Signed: Dayo Menon MD at 13:01 EDT ,
[2024-03-09 13:09] LABS: Hematocrit 39.4 % (37-47); Hemoglobin 12.3 g/dL (12.0-15.0); Mean Corp Hgb Conc 31.2 g/dL (32-36); Mean Corpuscular Hgb 29.1 pg (27.0-32.0); Mean Corpuscular Volume 93.4 fL (81-99); POSITIVE COUNT YES; POSITIVE MORPHOLOGY YES; Platelet Count 280 K/mm3 (150-450); RBC Distribution Width CV 13.6 % (11.6-14.6); RBC Distribution Width SD 45.6 fl (35.1-43.9); Red Blood Count 4.22 M/mm3 (4.2-5.4); White Blood Count 5.5 K/mm3 (4.4-11.0)
[2024-03-09 13:11] LABS: Differential Indicated MANUAL DIFF
[2024-03-09 13:32] LABS: Vitamin D,25 Hydroxy 24.1 ng/mL
[2024-03-09 13:37] LABS: ALB/GLOB Ratio 1.2 RATIO (0.9-2.4); AST(SGOT) 23 U/L (15-37); Alanine Aminotransfer ALT/SGPT 22 U/L (13-56); Alkaline Phosphatase 68 U/L (45-117); Anion Gap 5 (5-15); BUN 18 mg/dL (7-18); Calcium,Total 9.4 mg/dL (8.5-10.1); Chloride 106 mmol/L (98-107); EST Glomerular Filtration Rate 63 mL/min (>60); Est Glom Filt Rate - Afr Amer 76 mL/min (>60); Globulin 3.2 g/dL (2.2-4.2); Glucose 92 mg/dL (74-106); Potassium 3.8 mmol/L (3.5-5.1); Protein, Total 7.2 g/dL (6.4-8.2); Sodium Level 139 mmol/L (136-145)
[2024-03-09 13:48] LABS: Basophil 5 % (0-1); Eosinophil 1 % (0-5); Lymphocyte 29 % (19-41); Metamyelocyte 2 % (0-1); Monocyte 7 % (0-10); Myelocyte 1 % (0-0); Neutrophil-Band 1 % (0-5); Neutrophil-Segmented 54 % (47-70); Total Cells Counted 100 (MANUAL DIFF)
[2024-03-09 13:50] LABS: Platelet Estimate ADEQUATE (ADEQ); Platelet Morphology LARGE; Reactive Lymphocyte 1+; Red Cell Morphology NORM C+C NORMAL (NORM C&C)
[2024-03-09 15:10] LABS: Neutrophil # 3.03 X10^3/uL (2.7-7.7)
[2024-03-11 14:20] LABS: Pathologist Review Reviewed
== END | disposition home or self-care (01) ==
PROVIDERS: PCP Family Medicine Geriatric Medicine; Referring Provider Family Medicine Geriatric Medicine; Visit Provider Family Medicine Geriatric Medicine
DX: R53.83 Other fatigue (principal); E55.9 Vitamin D deficiency, unspecified; M54.32 Sciatica, left side
CPT/HCPCS: 36415; 72110; 80053; 82306; 84443; 85025

== ENCOUNTER → 2024-09-02 | Outpatient (CLI) | payer MEDICARE, OTHER, SELFPAY ==
[2024-09-02 10:57] LABS: Absolute Lymphocyte Count 1.27 X10^3/uL (0.83-4.51); Absolute Neutrophil Count 2.9 X10^3/uL (2.0-7.7); Basophil# 0.07 X10^3/uL; Basophil% 1.4 % (0-1); Eosinophil# 0.11 X10^3/uL; Eosinophils% 2.2 % (0-5); Hematocrit 38.4 % (37-47); Hemoglobin 12.1 g/dL (12.0-15.0); Lymphocyte # 1.27 X10^3/ul (0.83-4.51); Lymphocyte % 25.7 % (19-41); Mean Corp Hgb Conc 31.5 g/dL (32-36); Mean Corpuscular Hgb 29.2 pg (27.0-32.0); Mean Corpuscular Volume 92.8 fL (81-99); Monocyte# 0.42 X10^3/uL; Monocyte% 8.5 % (0-10); NRBC Flagged by Analyzer 0 % (0-5); Neutrophil # 2.87 X10^3/uL (2.7-7.7); Platelet Count 290 K/mm3 (150-450); RBC Distribution Width CV 13.9 % (11.6-14.6); RBC Distribution Width SD 47.2 fl (35.1-43.9); Red Blood Count 4.14 M/mm3 (4.2-5.4)
[2024-09-02 11:42] LABS: Vitamin D,25 Hydroxy 16.9 ng/mL
[2024-09-02 11:56] LABS: ALB/GLOB Ratio 1.2 RATIO (0.9-2.4); AST(SGOT) 18 U/L (15-37); Alanine Aminotransfer ALT/SGPT 19 U/L (13-56); Albumin, Serum 3.8 g/dL (3.2-5.0); Alkaline Phosphatase 63 U/L (45-117); Anion Gap 3 (5-15); BUN 18 mg/dL (7-18); BUN/Creat Ratio 20.2 RATIO (10-20); Calcium,Total 9.4 mg/dL (8.5-10.1); Chloride 106 mmol/L (98-107); Creatinine, Serum 0.89 mg/dL (0.55-1.02); EST Glomerular Filtration Rate 63 mL/min (>60); Est Glom Filt Rate - Afr Amer 77 mL/min (>60); Globulin 3.3 g/dL (2.2-4.2); Glucose 92 mg/dL (74-106); Protein, Total 7.1 g/dL (6.4-8.2); Sodium Level 136 mmol/L (136-145)
== END | disposition home or self-care (01) ==
LOC: POLAB3 10:17
PROVIDERS: PCP Family Medicine Geriatric Medicine; Visit Provider Family Medicine Geriatric Medicine
DX: R53.83 Other fatigue (principal); E55.9 Vitamin D deficiency, unspecified
CPT/HCPCS: 36415; 80053; 82306; 84443; 85025

== ENCOUNTER → 2024-10-01 | Outpatient (CLI) | payer MEDICARE, OTHER, SELFPAY ==
--- NOTE | 2024-10-01 12:20 | LES_PTH ---
PATIENT: TOI HESS LOC: [facility] U#:[id number] AGE/SX: 89/F ROOM: RE10/01/[address]: Dr. Vahe Hammer MD : 1935 BED: DIS: 10/01/2024 SPEC #: [id number] RECD: 10/03/24 15:06 STATUS: CHARISSA RELucien #: [id number] SARITHA: 10/01/24 12:[address]: Vahe Hammer DEPT: SURGICAL PATHOLOGY RECD BY: Johanna Ahuja ENTERED: 10/04/24 10:38 SP TYPE: Lesion OTHR DR: Dr. Landon Garcia MD Tissues: Skin of ankle and foot Procedures: Special Stain Group I Surgery Specimen Level IV GMS Stain (control) HEADER OPERATION: Biopsy lesion of right ankle PRE-OP DIAGNOSIS: Lesion of right ankle TISSUE SUBMITTED: Right ankle MICROSCOPIC DIAGNOSIS Right ankle, punch biopsy: Dermal and junctional chronic inflammation and granulation tissue reaction. Negative for malignancy. See comment. 10/05/2024 COMMENT Focal intraepidermal and subepidermal vesicles formation are also noted. Changes are suggestive of stasis dermatitis. Special stain for fungi is negative for organisms; matched control is appropriate. Correlation with clinical findings and appropriate follow up are necessary. Excision of the lesion is suggested, if clinically indicated. This case has been reviewed in consultation with Dr. Segura who concurs with the above diagnosis. IDC:PW MICROSCOPIC DESCRIPTION Slides are reviewed. GROSS DESCRIPTION Received in fixative is one container labeled with the patient's name and designated Right ankle. The specimen consists of a punch biopsy of brenner-light brown skin measuring 0.5cm in diameter and up to 0.3cm in length. The specimen is inked, bisected and submitted entirely in one cassette. 10/04/2024 TC:3 CPT:94589,19803
== END | disposition home or self-care (01) ==
LOC: LABSPEC 15:42
PROVIDERS: PCP Family Medicine Geriatric Medicine; Referring Provider Surgery Plastic and Reconstructive Surgery; Visit Provider Surgery Plastic and Reconstructive Surgery
DX: L98.9 Disorder of the skin and subcutaneous tissue, unspecified (principal)
CPT/HCPCS: 88305; 88312